=== PATIENT | female | born 1975 ===

== ENCOUNTER 2025-01-02 01:27 | Outpatient (CLI) | payer SELFPAY ==
--- NOTE | 2025-01-02 06:45 | DI.US_ITS ---
Exam(s) US NEEDLE LOCAL OTHER WO RAD EXAM: US NEEDLE LOCAL OTHER WO RAD CLINICAL HISTORY: Left isthmus thyroid nodule TR 4,ultrasound guided bx,e04.2. COMPARISON: US US Thyroid, Soft Tissue Hd+Nck from 02/23/2024 TECHNIQUE: The procedure was performed by Dr. Witt. FINDINGS: Hard copy images show needle entering the previously noted thyroid nodule. Please see procedure note for details. DATA REPOSITORY:
--- NOTE | 2025-01-02 11:30 | PAPNONF_PTH ---
PATIENT: Ingrid Hicks LOC: [facility] U#:[id number] AGE/SX: 49/F ROOM: RE01/02/[address]: Silverio Witt MD : [id number] BED: DIS: 01/02/2025 SPEC #: [id number] RECD: 01/02/25 13:00 STATUS: DAJA REDiana #: [id number] ARAMIS: 01/02/25 11:[address]: Silverio Witt DEPT: [facility] Cytology RECD BY: Maritza Miranda ENTERED: 01/02/25 13:00 SP TYPE: PAPARMANDOF YESICA DR: Annie Jones Tissues: 1 - BODY FLUID CYTO-FINE NEEDLE [facility] Procedures: BODY FLUID CYTO-FINE NEEDLE ASPIRATE[facility] Comments: [id number] (PATH FNA CONSULT) (REFRIGERATED)
--- NOTE | 2025-01-02 11:50 | W.PROCNOTE ---
Date of service: 01/02/25 Time of Service: 11:50 Procedure Note Date of procedure: 01/02/25 Procedure: Ultrasound-guided FNA, left thyroid nodule, pathology. Surgeon/Proceduralist/Physician: Silverio Witt Procedure Diagnosis: The patient has a left-sided thyroid nodule meeting criteria for biopsy. Procedure Indications: Patient has a left-sided thyroid nodule meeting criteria for biopsy. Options were explained to the patient regarding further management. She elected to undergo the above procedure. Consent was filled out and signed prior to procedure. The below was then performed. Procedure Description: The patient was positioned in supine position with her neck slightly extended. Ultrasound was used to localize the left-sided thyroid nodule adjacent to the isthmus and the patient was prepped and draped in appropriate fashion. 1% lidocaine with 1/100,000 epinephrine was injected in the skin and subcutaneous tissues overlying the thyroid nodule. A 25-gauge needle was then carefully passed into the thyroid nodule under direct visualization using ultrasound and the specimen was then handed to pathology. After 2 passes, adequate cellularity was reached. 2 additional passes were then made for potential Afirma testing. The patient tolerated this procedure well. There was no significant bleeding. After ensuring adequate hemostasis, sterile dressing was applied and the patient was allowed to sit, stand, ambulate, and the specimen was sent to pathology She will remove the bandage in a couple of hours. She will use ibuprofen or Tylenol for any discomfort. She will call if she does not hear from me within a week or call sooner if she notes any signs of infection or has any concerns. She had no further questions. She is comfortable with the plan
== END 2025-01-02 01:47 ==
LOC: DI 01:28
PROVIDERS: PCP Nurse Practitioner; Visit Provider Otolaryngology
DX: E04.2 Nontoxic multinodular goiter (principal)
CPT/HCPCS: 10005; 76942; 88104